=== PATIENT | female | born 1965 | race African-American/Black ===

== ENCOUNTER 2018-09-12 15:32 | Emergency (ER) | payer SELFPAY ==
[2018-09-12 15:56] VITALS: BP 158/107
--- NOTE | 2018-09-12 16:08 | UC ---
Lower Extremity/Ankle HPI - HPI Summary HPI Summary: 53 yo female twisted left foot stepping off a curb 3 days ago has left foot pain /knee pain and left shoulder pain did not fall - History of Current Complaint Chief Complaint: UCLowerExtremity Stated Complaint: LEFT KNEE/SHOULDER INJ Time Seen by Provider: 09/12/18 15:59 Hx Obtained From: Patient Onset/Duration: Sudden Onset Severity Initially: Severe Severity Currently: Severe Pain Intensity: 10 - when ambulating Pain Scale Used: 0-10 Numeric Aggravating Factor(s): Standing, Ambulation Alleviating Factor(s): Rest, OTC Meds Able to Bear Weight: Yes Legs: 1 - tender Feet (Multiple View): 1 - swwollen and tender - Allergies/Home Medications Allergies/Adverse Reactions: Allergies Allergy/AdvReac Type Severity Reaction Status Date / Time amlodipine [From Norvasc] Allergy Swelling Verified 09/12/18 16:00 codeine Allergy Itching Verified 09/12/18 16:00 tramadol [From [facility]] Allergy Itching Verified 09/12/18 16:00 Home Medications: Home Medications Gabapentin CAP(*) [Neurontin 400 mg CAP(*)] 400 mg PO BID 09/12/18 [History Confirmed 09/12/18] Hydrochlorothiazide TAB* [Hydrodiuril TAB*] 25 mg PO DAILY 09/12/18 [History Confirmed 09/12/18] Metformin ER (NF) 500 mg PO DAILY 09/12/18 [History Confirmed 09/12/18] Rosuvastatin Calcium [Crestor] 20 mg PO DAILY 09/12/18 [History Confirmed ] Spironolactone TAB* [Aldactone TAB*] 50 mg PO DAILY 09/12/18 [History Confirmed 09/12/18] PMH/Surg Hx/FS Hx/Imm Hx Endocrine History: Diabetes Cardiovascular History: Hypertension - Surgical History Surgical History: Yes Surgery Procedure, Year, and Place: 2016 neck surgery- herniated disc - Family History Known Family History: Positive: Hypertension - Social History Alcohol Use: None Substance Use Type: None Smoking Status (MU): Never Smoked Tobacco Review of Systems All Other Systems Reviewed And Are Negative: Yes Constitutional: Positive: Negative Skin: Positive: Negative Eyes: Positive: Negative ENT: Positive: Negative Respiratory: Positive: Negative Cardiovascular: Positive: Negative Gastrointestinal: Positive: Negative Musculoskeletal: Positive: Arthralgia, Myalgia Psychological: Positive: Negative Physical Exam Triage Information Reviewed: Yes Appearance: Well-Appearing, No Pain Distress, Well-Nourished Vital Signs: Initial Vital Signs Temp 98.5 F 09/12/18 15:52 Pulse 87 09/12/18 15:52 Resp 16 09/12/18 15:52 BP 158/107 09/12/18 15:52 Pulse Ox 99 09/12/18 15:52 Vital Signs Reviewed: Yes Eyes: Positive: Conjunctiva Clear ENT: Positive: Hearing grossly normal. Negative: Nasal congestion, Nasal drainage, Tonsillar swelling, Tonsillar exudate Neck: Positive: Supple, Nontender Respiratory: Positive: Lungs clear, Normal breath sounds, No respiratory distress, No accessory muscle use Cardiovascular: Positive: RRR, No Murmur Musculoskeletal: Positive: ROM Intact, Edema @ - dosum of left foot Psychological Exam: Normal Skin Exam: Normal Images Head: 1 - tender Diagnostics - Radiology No standard instances Radiology Interpretation Completed By: Radiologist Summary of Radiographic Findings: left foot- no fx, left knee patellar spur Lower Extremity Course/Dx - Differential Dx/Diagnosis Provider Diagnosis: Sprain of left foot, Left knee tendonitis, Left shoulder strain Discharge - Sign-Out/Discharge Documenting (check all that apply): Patient Departure All imaging exams completed and their final reports reviewed: Yes - Discharge Plan Condition: Stable Disposition: HOME Prescriptions: Cyclobenzaprine (NF) [Cyclobenzaprine 5 MG (NF)] 5 mg PO TID PRN #15 tab PRN Reason: Spasms Ibuprofen TAB* [Motrin TAB*] 600 mg PO QID PRN #40 tab PRN Reason: Pain Patient Education Materials: Shoulder Sprain (ED), Foot Sprain (ED), Tendinitis (ED) Referrals: [facility] [Outside] - 1 Week Additional Instructions: sling as needed for comfort post op shoe don't take muscle relaxant and drive or work - Billing Disposition and Condition Condition: STABLE Disposition: Home
== END 2018-09-12 17:30 | disposition home or self-care (01) ==
LOC: UCCORT 15:32
DX: S93.602A Unspecified sprain of left foot, initial encounter (principal); M76.9 Unspecified enthesopathy, lower limb, excluding foot; S46.912A Strain of unspecified muscle, fascia and tendon at shoulder and upper arm level, left arm, initial encounter; W10.1XXA Fall (on)(from) sidewalk curb, initial encounter; Y92.9 Unspecified place or not applicable; Z88.5 Allergy status to narcotic agent; E11.9 Type 2 diabetes mellitus without complications; Z79.84 Long term (current) use of oral hypoglycemic drugs; I10 Essential (primary) hypertension
CPT/HCPCS: 99203; G0463